=== PATIENT | female | born 1950 | race Caucasian/White ===

== ENCOUNTER 2021-04-07 07:57 | Emergency (ER) | payer OTHER, MEDICAID ==
[~2021-04-07] VITALS: Ht 167.6 cm; Wt 78.5 kg
[2021-04-07 08:02] VITALS: BP 111/63
[2021-04-07] MEDS ORDERED: ATOR20TA PO (08:03)
[2021-04-07] MEDS ORDERED: MELA5TAB PO (08:03)
[2021-04-07] MEDS ORDERED: LORA10TA19 PO (08:03)
[2021-04-07] MEDS ORDERED: SERT100T PO (08:03)
[2021-04-07] MEDS ORDERED: DONE10TA10 PO (08:03)
[2021-04-07] MEDS ORDERED: RISP0.5T3 PO (08:03)
[2021-04-07] MEDS ORDERED: ATEN50TA8 PO (08:03)
[2021-04-07] MEDS ORDERED: MONT10TA35 PO (08:03)
[2021-04-07] MEDS ORDERED: ESTR1TAB19 PO (08:03)
--- NOTE | 2021-04-07 08:16 | NUR ---
70/F biba from [facility] with c/o fall. Per EMS, patient had unwitness fall at 5am, stating patient was found face down, awake and alert. Patient is GCS 13 at baseline, not answering questions when spoken to at baseline. Visible redness to nose and slight bruising to right flank area, patient appears calm laying in bed. Placed in gown on bedside monitor tech, Dr. Perez bedside.
--- NOTE | 2021-04-07 09:30 | NUR ---
LABS DRAWN BEDSIDE AND WALKED TO LAB.
--- NOTE | 2021-04-07 10:00 | NUR ---
Patient appears to be resting comfortably in bed. Vital Signs within normal limits. Respirations even and unlabored.
[2021-04-07] MEDS ORDERED: MIRABULK PO (10:11)
[2021-04-07 10:31] LABS: BASOPHILS % (AUTO) 0.2 % (0.0-2.0); EOSINOPHILS % (AUTO) 0.1 % (0.0-4.0); HEMATOCRIT 42.4 % (36-48); HEMOGLOBIN 14.2 g/dL (12.0-16.0); LYMPHOCYTES # (AUTO) 1.2 K/uL (2.5-16.5); LYMPHOCYTES % (AUTO) 11.9 % (20.5-51.1); MEAN CORPUSCULAR HEMOGLOBIN 29 pg (27-31); MEAN CORPUSCULAR HGB CONC 34 g/dL (33-37); MEAN CORPUSCULAR VOLUME 87.7 fL (80-94); MONOCYTES # (AUTO) 0.8 K/uL (0.8-1.0); NEUTROPHILS # (AUTO) 8.3 K/uL (1.8-7.7); NEUTROPHILS % (AUTO) 79.8 % (42.2-75.2); PLATELET COUNT (AUTO) 203 K/uL (140-450); RED BLOOD CELL COUNT(AUTO) 4.83 MIL/uL (4.20-5.40); WHITE BLOOD COUNT (AUTO) 10.4 K/uL (4.8-10.8)
[2021-04-07 10:35] LABS: ALBUMIN 3.3 g/dL (3.4-5.0); ANION GAP 10.8 (8-16); CARBON DIOXIDE 30.3 mmol/L (21-32); CREATININE 0.7 mg/dL (0.6-1.3); POTASSIUM 4.1 mmol/L (3.5-5.1); TOTAL BILIRUBIN 0.5 mg/dL (0.0-1.0)
--- NOTE | 2021-04-07 11:02 | NUR ---
X-ray at bedside
[2021-04-07 11:47] VITALS: BP 161/79
--- NOTE | 2021-04-07 11:48 | NUR ---
Patient discharged with v/s stable. Written and verbal after care instructions given and explained. Wheel chair assisted to van. All questions addressed prior to discharge. Advised to follow up with PMD.
--- NOTE | 2021-04-07 11:50 | NUR ---
Attempted to assist patient into drivers van, stated "she will not get in, I am going to walk her back." assited patient up from wheel chair and proceeded to walk with her back to facility.
== END 2021-04-07 11:48 | disposition home or self-care (01) ==
LOC: MED 07:57
DX: Z04.3 Encounter for examination and observation following other accident (principal)
CPT/HCPCS: 36415; 70450; 70486; 71045; 72125; 73030; 80053; 85025; 99285

== ENCOUNTER 2021-11-08 07:11 | Emergency (ER) | payer OTHER, MEDICAID ==
[~2021-11-08] VITALS: Ht 165.1 cm; Wt 53.2 kg
[~2021-11-08 07:11] MED LIST: ATEN50TA8 PO; ATOR20TA PO; DONE10TA10 PO; ESTR1TAB19 PO; LORA10TA19 PO; MELA5TAB PO; MONT10TA35 PO; RISP0.5T3 PO; SERT100T PO
--- NOTE | 2021-11-08 07:13 | NUR ---
PT [facility] BLS. TAKEN TO BED 3
[2021-11-08 07:18] VITALS: BP 151/62
--- NOTE | 2021-11-08 07:30 | NUR ---
PT BIB ALS RUN FROM [facility] C/O UNWITNESSED FALL THIS AM. PT AOX1 FOLLOWS COMMANDS. LACERATION NOTED TO OCCIPTAL SCALP BLEEDING CONTROLLED. PLACED ON BEDSIDE MONITOR. NAD. SAFETY MAINTAINED.
[2021-11-08] MEDS: LIDOCAINE MPF 1% 10 MG/ML VIAL INJ ONE (08:00)
--- NOTE | 2021-11-08 08:28 | NUR ---
PT TAKEN TO CT
--- NOTE | 2021-11-08 08:35 | NUR ---
pt's lac cleaned and irrigated with warm water and staple set up at bed side ermd notified.
[2021-11-08 09:15] LABS: BASOPHILS % (AUTO) 0.4 % (0.0-2.0); EOSINOPHILS % (AUTO) 0.9 % (0.0-4.0); HEMATOCRIT 39.8 % (36-48); HEMOGLOBIN 13.3 g/dL (12.0-16.0); LYMPHOCYTES # (AUTO) 1.3 K/uL (2.5-16.5); LYMPHOCYTES % (AUTO) 25.1 % (20.5-51.1); MEAN CORPUSCULAR HEMOGLOBIN 30 pg (27-31); MEAN CORPUSCULAR HGB CONC 33 g/dL (33-37); MEAN CORPUSCULAR VOLUME 90.5 fL (80-94); MONOCYTES # (AUTO) 0.5 K/uL (0.8-1.0); MONOCYTES % (AUTO) 9.1 % (1.7-9.3); NEUTROPHILS # (AUTO) 3.5 K/uL (1.8-7.7); NEUTROPHILS % (AUTO) 64.5 % (42.2-75.2); PLATELET COUNT (AUTO) 181 K/uL (140-450); RED BLOOD CELL COUNT(AUTO) 4.39 MIL/uL (4.20-5.40); RED CELL DISTRIBUTION WIDTH 14.5 % (11.6-13.7)
[2021-11-08 09:22] LABS: ALBUMIN 3.1 g/dL (3.4-5.0); ANION GAP 10.3 (8-16); CARBON DIOXIDE 27.5 mmol/L (21-32); CREATININE 0.8 mg/dL (0.6-1.3); POTASSIUM 3.8 mmol/L (3.5-5.1); TOTAL BILIRUBIN 0.4 mg/dL (0.0-1.0)
[2021-11-08 09:29] LABS: WHITE BLOOD COUNT (AUTO) 5.4 K/uL (4.8-10.8)
--- NOTE | 2021-11-08 11:00 | NUR ---
spoke to yuriy baca states transportation will pick pt up in 10 minutes
--- NOTE | 2021-11-08 11:15 | NUR ---
transport here for dc to [facility]. pt stable on dc
[2021-11-08 11:16] VITALS: BP 146/70
== END 2021-11-08 11:16 | disposition home or self-care (01) ==
LOC: MED 07:11
DX: S01.01XA Laceration without foreign body of scalp, initial encounter (principal); Z20.822 Contact with and (suspected) exposure to COVID-19; F03.90 Unspecified dementia, unspecified severity, without behavioral disturbance, psychotic disturbance, mood disturbance, and anxiety; J45.909 Unspecified asthma, uncomplicated; I10 Essential (primary) hypertension; E78.00 Pure hypercholesterolemia, unspecified; F32.9 Major depressive disorder, single episode, unspecified; F41.9 Anxiety disorder, unspecified; F20.9 Schizophrenia, unspecified; W18.39XA Other fall on same level, initial encounter; Y93.89 Activity, other specified; Y92.89 Other specified places as the place of occurrence of the external cause; Y99.8 Other external cause status
CPT/HCPCS: 12002; 36415; 70450; 71045; 72125; 80053; 84484; 85025; 85610; 85730; 87426; 90471; 90715; 93005; 99285; J2001; Q0092

== ENCOUNTER 2022-02-09 20:45 | Emergency (ER) | payer OTHER, MEDICAID ==
[~2022-02-09] VITALS: Ht 162.6 cm; Wt 63.5 kg
--- NOTE | 2022-02-09 20:49 | NUR ---
PT [facility] BLS. TAKEN TO BED 9
[2022-02-09 20:51] VITALS: BP 145/72
--- NOTE | 2022-02-09 21:38 | NUR ---
X-Ray at bedside.
[2022-02-09 21:50] LABS: BASOPHILS % (AUTO) 0.5 % (0.0-2.0); EOSINOPHILS # (AUTO) 0.1 K/uL (0-0.4); EOSINOPHILS % (AUTO) 1.1 % (0.0-4.0); HEMATOCRIT 39.1 % (36-48); LYMPHOCYTES # (AUTO) 1.8 K/uL (2.5-16.5); LYMPHOCYTES % (AUTO) 29.7 % (20.5-51.1); MEAN CORPUSCULAR HEMOGLOBIN 30 pg (27-31); MEAN CORPUSCULAR HGB CONC 33 g/dL (33-37); MEAN CORPUSCULAR VOLUME 90.6 fL (80-94); MONOCYTES # (AUTO) 0.4 K/uL (0.8-1.0); MONOCYTES % (AUTO) 7.6 % (1.7-9.3); NEUTROPHILS # (AUTO) 3.6 K/uL (1.8-7.7); NEUTROPHILS % (AUTO) 61.1 % (42.2-75.2); PLATELET COUNT (AUTO) 215 K/uL (140-450); RED BLOOD CELL COUNT(AUTO) 4.31 MIL/uL (4.20-5.40); RED CELL DISTRIBUTION WIDTH 13.4 % (11.6-13.7); WHITE BLOOD COUNT (AUTO) 5.9 K/uL (4.8-10.8)
[2022-02-09 22:11] LABS: ALBUMIN 3.4 g/dL (3.4-5.0); ANION GAP 7.4 (8-16); CARBON DIOXIDE 31.7 mmol/L (21-32); CREATININE 0.7 mg/dL (0.6-1.3); POTASSIUM 4.1 mmol/L (3.5-5.1); TOTAL BILIRUBIN 0.3 mg/dL (0.0-1.0)
--- NOTE | 2022-02-10 00:28 | NUR ---
UNABLE TO FIND A SAFE WAY HOME FOR PATIENT AT THIS TIME. FACILITY THAT PT LIVES IN WILL BE ABLE TO SEND SOMEONE IN AM TO PICK PT UP.
--- NOTE | 2022-02-10 01:24 | NUR ---
PT RESTING, PROVIDED WARM BLANKETS. NO S/S OF DISTRESS NOTED.
--- NOTE | 2022-02-10 02:30 | NUR ---
PT RESTING, NO S/S OF DISTRESS NOTED. NO CHANGE IN PT STATUS.
--- NOTE | 2022-02-10 03:30 | NUR ---
PT AWAKE AND LAYING IN BED QUIETLY. NO S/S OF DISTRESS NOTED. PT AWAITING RIDE TO [facility] WHERE SHE LIVES.
--- NOTE | 2022-02-10 04:30 | NUR ---
PT AWAKE QUIETLY, NO S/S OF DISTRESS NOTED. CONTINUE TO WAIT FOR RIDE TO PLACE OF LIVING.
--- NOTE | 2022-02-10 06:20 | NUR ---
PT CLEANED UP AT THIS TIME. PT WEARS A DIAPER. PT WAS SATURATED WITH URINE. GOWN PLACED ON PT.
--- NOTE | 2022-02-10 07:18 | NUR ---
REPORT AND CARE GIVEN TO HINA UMAÑA WITH FULL RETURNED VERBAL UNDERSTANDING.
--- NOTE | 2022-02-10 08:00 | NUR ---
RECEIVED PT IN [facility], PT CONFUSED HX OF DEMENTIA. PENDING TRANSPORT BACK TO SNF. NAD.
[2022-02-10 09:56] VITALS: BP 108/46
--- NOTE | 2022-02-10 09:56 | NUR ---
report given to yuriy baca for continuation of care. transportation here for safe dc back to snf. stable on dc
== END 2022-02-10 09:56 | disposition home or self-care (01) ==
LOC: MED 20:45
DX: M25.561 Pain in right knee (principal); G30.9 Alzheimer's disease, unspecified; F02.80 Dementia in other diseases classified elsewhere, unspecified severity, without behavioral disturbance, psychotic disturbance, mood disturbance, and anxiety; J45.909 Unspecified asthma, uncomplicated; I10 Essential (primary) hypertension; E78.00 Pure hypercholesterolemia, unspecified; Z79.899 Other long term (current) drug therapy; W18.39XA Other fall on same level, initial encounter; Y92.89 Other specified places as the place of occurrence of the external cause; Y93.89 Activity, other specified; Y99.8 Other external cause status
CPT/HCPCS: 36415; 70450; 73562; 80053; 84484; 85025; 93005; 99285

== ENCOUNTER 2023-02-16 10:32 | Emergency (ER) | payer OTHER, MEDICAID ==
[~2023-02-16] VITALS: Ht 160 cm; Wt 54.4 kg
[~2023-02-16 10:32] MED LIST changes: +MONT-72 PO; -MONT10TA35 PO
[2023-02-16 10:37] VITALS: BP 126/76
--- NOTE | 2023-02-16 11:04 | NUR ---
PATIENT BROUGHT IN BY AMBULANCE, BLS. TO ER BED 04
--- NOTE | 2023-02-16 11:22 | NUR ---
patient sent to er for medical evaluation after falling yesterday, no pain.
[2023-02-16] MEDS ORDERED: BACITRACIN OINT 500 UNITS/GM PKT TP ONE ×2 (12:42→12:45)
[2023-02-16] MEDS ORDERED: NITR100C7 PO ×2 (12:42→12:54)
[2023-02-16] MEDS ORDERED: BACO TP ×2 (12:44→12:54)
--- NOTE | 2023-02-16 13:06 | NUR ---
Patient discharged with v/s stable. Written and verbal after care instructions given and explained. Patient alert, oriented and verbalized understanding of instructions. Ambulatory with steady gait. All questions addressed prior to discharge. ID band removed. Patient advised to follow up with PMD. Rx of MACROBID, BACITRACIN given. Patient educated on indication of medication including possible reaction and side effects. Opportunity to ask questions provided and answered.
== END 2023-02-16 11:04 | disposition home or self-care (01) ==
LOC: MED 10:32
DX: S51.811A Laceration without foreign body of right forearm, initial encounter (principal); F03.90 Unspecified dementia, unspecified severity, without behavioral disturbance, psychotic disturbance, mood disturbance, and anxiety; J45.909 Unspecified asthma, uncomplicated; Z79.899 Other long term (current) drug therapy; W18.30XA Fall on same level, unspecified, initial encounter; Y93.89 Activity, other specified; Y92.89 Other specified places as the place of occurrence of the external cause; Y99.8 Other external cause status
CPT/HCPCS: 99283

== ENCOUNTER 2023-11-14 09:48 | Emergency (ER) | payer OTHER, MEDICAID ==
[~2023-11-14] VITALS: Ht 165.1 cm; Wt 61.2 kg
[~2023-11-14 09:48] MED LIST changes: +BACO TP; +NITR100C7 PO
[2023-11-14 09:50] VITALS: PULSE 96; RESP 18; TEMP 98.4; O2SAT 94
[2023-11-14 13:16] VITALS: BP 118/74; PULSE 76; RESP 18; TEMP 98.2; O2SAT 99
== END 2023-11-14 13:17 | disposition home or self-care (01) ==
LOC: MED 09:48
DX: S00.03XA Contusion of scalp, initial encounter (principal); F03.90 Unspecified dementia, unspecified severity, without behavioral disturbance, psychotic disturbance, mood disturbance, and anxiety; J45.909 Unspecified asthma, uncomplicated; Z79.899 Other long term (current) drug therapy; W18.30XA Fall on same level, unspecified, initial encounter; Y93.89 Activity, other specified; Y92.89 Other specified places as the place of occurrence of the external cause; Y99.8 Other external cause status
CPT/HCPCS: 70450; 72125; 99284